=== PATIENT | female | born 1990 | race Caucasian/White ===

== ENCOUNTER 2017-11-22 04:17 | Emergency (ER) | payer OTHER ==
[~2017-11-22] VITALS: Ht 157.5 cm; Wt 79.4 kg
[2017-11-22 04:50] LABS: BASOPHILS ABSOLUTE AUTO 0.05 K/mm3 (0.00-0.23); BASOPHILS PERCENT AUTO 0 % (0-2); EOSINOPHILS ABSOLUTE AUTO 0.29 K/mm3 (0.00-0.68); EOSINOPHILS PERCENT AUTO 2 % (0-6); Hematocrit 41.2 % (33.0-51.0); Hemoglobin 13.7 g/dL (11.5-16.0); IMMATURE GRAN ABSOLUTE AUTO 0.06 K/mm3 (0.00-0.10); IMMATURE GRAN PERCENT AUTO 1 % (0-1); LYMPHOCYTES ABSOLUTE AUTO 2.04 K/mm3 (0.84-5.20); LYMPHOCYTES PERCENT AUTO 16 % (21-46); MONOCYTES ABSOLUTE AUTO 1.17 K/mm3 (0.16-1.47); MONOCYTES PERCENT AUTO 9 % (4-13); Mean Corpuscular HGB 30.6 pg (26.0-34.0); Mean Corpuscular HGB Conc 33.3 g/dL (31.5-36.5); Mean Corpuscular Volume 92 fL (80-100); Mean Platelet Volume 10.1 fL (9.1-12.4); NEUTROPHILS ABSOLUTE AUTO 8.96 K/mm3 (1.96-9.15); NEUTROPHILS PERCENT AUTO 71 % (41-73); Platelet Count 282 K/mm3 (150-400); RDW Coefficient Variation 11.9 % (11.7-14.2); RDW Standard Deviation 40.6 fL (35.1-46.3); Red Blood Cell Count 4.48 M/mm3 (3.80-5.20); White Blood Cell Count 12.57 K/mm3 (4.00-11.30)
[2017-11-22 05:09] LABS: Alanine Aminotransfer (ALT/SGP 40 U/L (12-78); Albumin, Blood 3.6 g/dL (3.4-5.0); Alk Phos 92 U/L (50-136); Anion Gap 5 mmol/L (6-16); Aspartate Aminotrans (AST/SGOT 25 U/L (12-37); Bilirubin, Total 0.2 mg/dL (0.1-1.0); Blood Urea Nitrogen 12 mg/dL (8-24); Bun/Creatinine Ratio 17.5 (12.0-20.0); CO2, Blood 28 mmol/L (21-32); Calcium, Blood 8.5 mg/dL (8.5-10.1); Chloride, Blood 104 mmol/L (98-108); Creatinine, Blood 0.68 mg/dL (0.40-1.00); Globulin, Blood 3.7 g/dL (2.2-4.0); Glomerular Filtration Rate >60 (60-); Glucose, Blood 136 mg/dL (70-99); Potassium, Blood 4.1 mmol/L (3.5-5.5); Sodium, Blood 137 mmol/L (136-145); Total Protein, Blood 7.3 g/dL (6.4-8.2); Troponin I <0.015 ng/mL (0.000-0.040)
== END 2017-11-22 05:50 | disposition home or self-care (01) ==
LOC: ER 04:17
PROVIDERS: Emergency Medicine
DX: R07.9 Chest pain, unspecified (principal); G89.29 Other chronic pain; F17.210 Nicotine dependence, cigarettes, uncomplicated
CPT/HCPCS: 36415; 80053; 84484; 85025; 93005; 93010; 96374; 99284; J1885

== ENCOUNTER 2018-12-24 01:55 | Emergency (ER) | payer OTHER ==
[~2018-12-24] VITALS: Ht 157.5 cm; Wt 81.7 kg
[~2018-12-24 01:55] MED LIST: Bactrim Ds Tab1 EACH PO; IBUP400 PO; Keflex500 MG PO
== END 2018-12-24 06:53 | disposition home or self-care (01) ==
LOC: ER 01:55
DX: J02.9 Acute pharyngitis, unspecified (principal); F17.210 Nicotine dependence, cigarettes, uncomplicated
CPT/HCPCS: 87081; 87147; 87430; 96372; 99283-25; J0561; J1100

== ENCOUNTER 2019-07-09 14:11 | Emergency (ER) | payer OTHER ==
[~2019-07-09] VITALS: Ht 157.5 cm; Wt 83.9 kg
== END 2019-07-09 16:55 | disposition home or self-care (01) ==
LOC: ER 14:11
DX: S61.022A Laceration with foreign body of left thumb without damage to nail, initial encounter (principal); Z23 Encounter for immunization; Z91.040 Latex allergy status; F17.200 Nicotine dependence, unspecified, uncomplicated; W45.8XXA Other foreign body or object entering through skin, initial encounter
CPT/HCPCS: 12001; 73140; 90471; 90714; 99283-25

== ENCOUNTER 2019-12-24 21:58 | Emergency (ER) | payer OTHER ==
[~2019-12-24] VITALS: Ht 157.5 cm; Wt 84.4 kg
[2019-12-24] MEDS ORDERED: BENZ100A PO (23:32)
== END 2019-12-24 23:40 | disposition home or self-care (01) ==
LOC: ER 21:58
DX: J06.9 Acute upper respiratory infection, unspecified (principal); F17.210 Nicotine dependence, cigarettes, uncomplicated; Z20.828 Contact with and (suspected) exposure to other viral communicable diseases
CPT/HCPCS: 71046; 99283-25; U0003

== ENCOUNTER 2019-12-29 23:29 | Emergency (ER) | payer OTHER ==
[~2019-12-29] VITALS: Ht 157.5 cm; Wt 84.4 kg
[~2019-12-29 23:29] MED LIST changes: +BENZ100A PO
[2019-12-30] MEDS ORDERED: Guaifenesin-Co118 ML PO (01:13)
[2019-12-30] MEDS ORDERED: ALBU90OI INH (01:13)
[2019-12-30] MEDS ORDERED: Prednisone20 MG PO (01:13)
[2019-12-30] MEDS ORDERED: Zithromax250 MG PO (01:13)
== END 2019-12-30 01:23 | disposition home or self-care (01) ==
LOC: ER 23:29
DX: J18.9 Pneumonia, unspecified organism (principal); F17.210 Nicotine dependence, cigarettes, uncomplicated; Z91.040 Latex allergy status
CPT/HCPCS: 94640; 99283-25; J7512

== ENCOUNTER 2020-01-05 22:43 | Emergency (ER) | payer OTHER ==
[~2020-01-05] VITALS: Ht 157.5 cm; Wt 84.4 kg
[~2020-01-05 22:43] MED LIST changes: +ALBU90OI INH; +Guaifenesin-Co118 ML PO; +Prednisone20 MG PO; +Zithromax250 MG PO
[2020-01-06] MEDS ORDERED: ALBU2.5V5 INH (01:20)
[2020-01-06] MEDS ORDERED: GUAIFEN-CODEIN118 ML PO (01:20)
== END 2020-01-06 01:17 | disposition home or self-care (01) ==
LOC: ER 22:43
DX: J20.9 Acute bronchitis, unspecified (principal); Z91.040 Latex allergy status; Z79.2 Long term (current) use of antibiotics; Z79.52 Long term (current) use of systemic steroids; F17.210 Nicotine dependence, cigarettes, uncomplicated
CPT/HCPCS: 71046; 99283-25

== ENCOUNTER → 2020-04-02 | Outpatient (CLI) | payer OTHER ==
[~2020-04-02] MED LIST changes: +ALBU2.5V5 INH; +GUAIFEN-CODEIN118 ML PO
[2020-04-04 03:08] LABS: CHLAMYDIA TRACHOMATIS, NAA Negative (Negative); NEISSERIA GONORRHOEAE, NAA Negative (Negative)
== END | disposition home or self-care (01) ==
LOC: LAB 11:06 → LAB SHORT 11:06
PROVIDERS: Advanced Practice Midwife
DX: Z30.09 Encounter for other general counseling and advice on contraception (principal)
CPT/HCPCS: 87491; 87591

== ENCOUNTER 2020-08-25 16:09 | Emergency (ER) | payer OTHER ==
[~2020-08-25] VITALS: Ht 160 cm; Wt 84.4 kg
[2020-08-25 16:42] LABS: BASOPHILS ABSOLUTE AUTO 0.06 K/mm3 (0.00-0.23); BASOPHILS PERCENT AUTO 1 % (0-2); EOSINOPHILS ABSOLUTE AUTO 0.18 K/mm3 (0.00-0.68); EOSINOPHILS PERCENT AUTO 2 % (0-6); Hematocrit 42.8 % (33.0-51.0); Hemoglobin 13.4 g/dL (11.5-16.0); IMMATURE GRAN ABSOLUTE AUTO 0.06 K/mm3 (0.00-0.10); IMMATURE GRAN PERCENT AUTO 1 % (0-1); LYMPHOCYTES ABSOLUTE AUTO 1.65 K/mm3 (0.84-5.20); LYMPHOCYTES PERCENT AUTO 18 % (21-46); MONOCYTES ABSOLUTE AUTO 1.13 K/mm3 (0.16-1.47); MONOCYTES PERCENT AUTO 12 % (4-13); Mean Corpuscular HGB 29.3 pg (26.0-34.0); Mean Corpuscular HGB Conc 31.3 g/dL (31.5-36.5); Mean Corpuscular Volume 93 fL (80-100); Mean Platelet Volume 10.2 fL (9.1-12.4); NEUTROPHILS ABSOLUTE AUTO 6.35 K/mm3 (1.96-9.15); NEUTROPHILS PERCENT AUTO 67 % (41-73); Platelet Count 290 K/mm3 (150-400); RDW Coefficient Variation 12.1 % (11.7-14.2); Red Blood Cell Count 4.58 M/mm3 (3.80-5.20); White Blood Cell Count 9.43 K/mm3 (4.00-11.30)
[2020-08-25 17:01] LABS: Alanine Aminotransfer (ALT/SGP 34 U/L (12-78); Albumin, Blood 3.8 g/dL (3.4-5.0); Alk Phos 97 U/L (50-136); Anion Gap 2 mmol/L (6-16); Aspartate Aminotrans (AST/SGOT 22 U/L (12-37); Bilirubin, Total 0.3 mg/dL (0.1-1.0); Blood Urea Nitrogen 11 mg/dL (8-24); Bun/Creatinine Ratio 16.9 (12.0-20.0); CO2, Blood 31 mmol/L (21-32); Chloride, Blood 106 mmol/L (98-108); Creatinine, Blood 0.65 mg/dL (0.40-1.00); Globulin, Blood 3.8 g/dL (2.2-4.0); Glomerular Filtration Rate >60 (60-); Glucose, Blood 84 mg/dL (70-99); Potassium, Blood 3.7 mmol/L (3.5-5.5); Sodium, Blood 139 mmol/L (136-145); Total Protein, Blood 7.6 g/dL (6.4-8.2)
[2020-08-25] MEDS ORDERED: Keflex500 MG PO (17:41)
[2020-08-25] MEDS ORDERED: Bactrim Ds Tab1 EACH PO (17:41)
== END 2020-08-25 18:00 | disposition home or self-care (01) ==
LOC: ER 16:09
PROVIDERS: Physician Assistant
DX: L03.116 Cellulitis of left lower limb (principal); F17.210 Nicotine dependence, cigarettes, uncomplicated; Z91.040 Latex allergy status
CPT/HCPCS: 36415; 80053; 85025; 96374; 99283-25; A9270; J1885

== ENCOUNTER 2021-02-24 23:05 | Emergency (ER) | payer OTHER ==
[~2021-02-24] VITALS: Ht 157.5 cm; Wt 86.6 kg
[2021-02-25] MEDS ORDERED: CEPH500 PO (00:44)
== END 2021-02-25 01:00 | disposition home or self-care (01) ==
LOC: ER 23:05
DX: L03.115 Cellulitis of right lower limb (principal); F17.210 Nicotine dependence, cigarettes, uncomplicated; Z91.040 Latex allergy status
CPT/HCPCS: 99282; A9270; J1885

== ENCOUNTER 2021-03-02 03:06 | Emergency (ER) | payer OTHER ==
[~2021-03-02] VITALS: Ht 160 cm; Wt 87.1 kg
[~2021-03-02 03:06] MED LIST changes: +CEPH500 PO
[2021-03-02 05:15] LABS: BASOPHILS ABSOLUTE AUTO 0.04 K/mm3 (0.00-0.23); BASOPHILS PERCENT AUTO 1 % (0-2); EOSINOPHILS ABSOLUTE AUTO 0.11 K/mm3 (0.00-0.68); EOSINOPHILS PERCENT AUTO 1 % (0-6); Hematocrit 36.9 % (33.0-51.0); Hemoglobin 12.4 g/dL (11.5-16.0); IMMATURE GRAN ABSOLUTE AUTO 0.09 K/mm3 (0.00-0.10); IMMATURE GRAN PERCENT AUTO 1 % (0-1); LYMPHOCYTES ABSOLUTE AUTO 1.54 K/mm3 (0.84-5.20); LYMPHOCYTES PERCENT AUTO 20 % (21-46); MONOCYTES ABSOLUTE AUTO 1.19 K/mm3 (0.16-1.47); MONOCYTES PERCENT AUTO 15 % (4-13); Mean Corpuscular HGB 30.8 pg (26.0-34.0); Mean Corpuscular HGB Conc 33.6 g/dL (31.5-36.5); Mean Corpuscular Volume 92 fL (80-100); Mean Platelet Volume 9.6 fL (9.1-12.4); NEUTROPHILS ABSOLUTE AUTO 4.81 K/mm3 (1.96-9.15); NEUTROPHILS PERCENT AUTO 62 % (41-73); Platelet Count 274 K/mm3 (150-400); RDW Coefficient Variation 12.2 % (11.7-14.2); RDW Standard Deviation 41.4 fL (35.1-46.3); Red Blood Cell Count 4.03 M/mm3 (3.80-5.20); White Blood Cell Count 7.78 K/mm3 (4.00-11.30)
[2021-03-02 05:36] LABS: Alanine Aminotransfer (ALT/SGP 26 U/L (12-78); Albumin/Globulin Ratio 0.8 (0.8-1.8); Alk Phos 104 U/L (50-136); Anion Gap 5 mmol/L (6-16); Aspartate Aminotrans (AST/SGOT 10 U/L (12-37); Bilirubin, Total 0.2 mg/dL (0.1-1.0); Blood Urea Nitrogen 8 mg/dL (8-24); Bun/Creatinine Ratio 10.8 (12.0-20.0); CO2, Blood 27 mmol/L (21-32); Calcium, Blood 8.4 mg/dL (8.5-10.1); Chloride, Blood 106 mmol/L (98-108); Creatinine, Blood 0.74 mg/dL (0.40-1.00); Glomerular Filtration Rate >60 (60-); Glucose, Blood 115 mg/dL (70-99); Potassium, Blood 3.6 mmol/L (3.5-5.5); Sodium, Blood 138 mmol/L (136-145); Troponin I <0.015 ng/mL (0.000-0.040)
[2021-03-02] MEDS ORDERED: Cleocin HCl300 MG PO (06:09)
== END 2021-03-02 06:24 | disposition home or self-care (01) ==
LOC: ER 03:06
PROVIDERS: Emergency Medicine
DX: L03.116 Cellulitis of left lower limb (principal); L03.115 Cellulitis of right lower limb
CPT/HCPCS: 36415; 80053; 83880; 84484; 85025; 86140; 99283; A9270

== ENCOUNTER 2021-04-28 05:43 | Emergency (ER) | payer OTHER ==
[~2021-04-28] VITALS: Ht 160 cm; Wt 84.4 kg
[~2021-04-28 05:43] MED LIST changes: +Cleocin HCl300 MG PO
[2021-04-28] MEDS ORDERED: PRED20 PO (06:26)
[2021-04-28] MEDS ORDERED: KETO10 PO (06:26)
== END 2021-04-28 07:05 | disposition home or self-care (01) ==
LOC: ER 05:43
DX: M79.641 Pain in right hand (principal); M79.642 Pain in left hand; G89.29 Other chronic pain; F17.210 Nicotine dependence, cigarettes, uncomplicated; Z91.040 Latex allergy status
CPT/HCPCS: 96372; 99283-25; J1885

== ENCOUNTER 2021-07-17 18:22 | Emergency (ER) | payer OTHER ==
[~2021-07-17] VITALS: Ht 160 cm; Wt 88.5 kg
[~2021-07-17 18:22] MED LIST changes: +KETO10 PO; +PRED20 PO
[2021-07-17 18:59] LABS: BASOPHILS ABSOLUTE AUTO 0.06 K/mm3 (0.00-0.23); BASOPHILS PERCENT AUTO 1 % (0-2); EOSINOPHILS ABSOLUTE AUTO 0.13 K/mm3 (0.00-0.68); EOSINOPHILS PERCENT AUTO 1 % (0-6); Hematocrit 41.9 % (33.0-51.0); IMMATURE GRAN ABSOLUTE AUTO 0.19 K/mm3 (0.00-0.10); IMMATURE GRAN PERCENT AUTO 2 % (0-1); LYMPHOCYTES ABSOLUTE AUTO 1.76 K/mm3 (0.84-5.20); LYMPHOCYTES PERCENT AUTO 17 % (21-46); MONOCYTES ABSOLUTE AUTO 0.83 K/mm3 (0.16-1.47); MONOCYTES PERCENT AUTO 8 % (4-13); Mean Corpuscular HGB 30.6 pg (26.0-34.0); Mean Corpuscular HGB Conc 33.4 g/dL (31.5-36.5); Mean Corpuscular Volume 92 fL (80-100); Mean Platelet Volume 10.3 fL (9.1-12.4); NEUTROPHILS ABSOLUTE AUTO 7.51 K/mm3 (1.96-9.15); NEUTROPHILS PERCENT AUTO 72 % (41-73); Platelet Count 395 K/mm3 (150-400); RDW Coefficient Variation 12.7 % (11.7-14.2); RDW Standard Deviation 42.5 fL (35.1-46.3); Red Blood Cell Count 4.57 M/mm3 (3.80-5.20); White Blood Cell Count 10.48 K/mm3 (4.00-11.30)
[2021-07-17 19:22] LABS: Alanine Aminotransfer (ALT/SGP 65 U/L (12-78); Albumin, Blood 3.4 g/dL (3.4-5.0); Albumin/Globulin Ratio 0.8 (0.8-1.8); Alk Phos 91 U/L (50-136); Anion Gap 5 mmol/L (6-16); Aspartate Aminotrans (AST/SGOT 35 U/L (12-37); Bilirubin, Total 0.3 mg/dL (0.1-1.0); Blood Urea Nitrogen 9 mg/dL (8-24); Bun/Creatinine Ratio 9.1 (12.0-20.0); CO2, Blood 29 mmol/L (21-32); Calcium, Blood 9.2 mg/dL (8.5-10.1); Chloride, Blood 104 mmol/L (98-108); Creatinine, Blood 0.99 mg/dL (0.40-1.00); Globulin, Blood 4.3 g/dL (2.2-4.0); Glomerular Filtration Rate >60 (60-); Glucose, Blood 126 mg/dL (70-99); Potassium, Blood 3.6 mmol/L (3.5-5.5); Sodium, Blood 138 mmol/L (136-145); Total Protein, Blood 7.7 g/dL (6.4-8.2)
[2021-07-17] MEDS ORDERED: Clindamycin HC300 MG PO (22:52)
== END 2021-07-18 00:34 | disposition home or self-care (01) ==
LOC: ER 18:22
PROVIDERS: Physician Assistant
DX: L03.115 Cellulitis of right lower limb (principal); Z91.040 Latex allergy status
CPT/HCPCS: 36415; 80053; 85025; 96365; 96366; 99283-25; J3370; J7050

== ENCOUNTER 2021-10-15 20:34 | Emergency (ER) | payer OTHER ==
[~2021-10-15] VITALS: Ht 160 cm; Wt 86.2 kg
[~2021-10-15 20:34] MED LIST changes: +Clindamycin HC300 MG PO
[2021-10-15 21:30] LABS: BASOPHILS ABSOLUTE AUTO 0.07 K/mm3 (0.00-0.23); BASOPHILS PERCENT AUTO 1 % (0-2); EOSINOPHILS ABSOLUTE AUTO 0.31 K/mm3 (0.00-0.68); EOSINOPHILS PERCENT AUTO 3 % (0-6); Hematocrit 40.2 % (33.0-51.0); Hemoglobin 13.3 g/dL (11.5-16.0); IMMATURE GRAN ABSOLUTE AUTO 0.09 K/mm3 (0.00-0.10); IMMATURE GRAN PERCENT AUTO 1 % (0-1); LYMPHOCYTES ABSOLUTE AUTO 1.84 K/mm3 (0.84-5.20); LYMPHOCYTES PERCENT AUTO 16 % (21-46); MONOCYTES ABSOLUTE AUTO 0.88 K/mm3 (0.16-1.47); MONOCYTES PERCENT AUTO 8 % (4-13); Mean Corpuscular HGB 30.2 pg (26.0-34.0); Mean Corpuscular HGB Conc 33.1 g/dL (31.5-36.5); Mean Corpuscular Volume 91 fL (80-100); Mean Platelet Volume 9.6 fL (9.1-12.4); NEUTROPHILS PERCENT AUTO 73 % (41-73); Platelet Count 363 K/mm3 (150-400); RDW Coefficient Variation 12.5 % (11.7-14.2); White Blood Cell Count 11.69 K/mm3 (4.00-11.30)
[2021-10-15 21:50] LABS: Alanine Aminotransfer (ALT/SGP 46 U/L (12-78); Albumin, Blood 3.5 g/dL (3.4-5.0); Albumin/Globulin Ratio 0.8 (0.8-1.8); Alk Phos 90 U/L (50-136); Anion Gap 5 mmol/L (6-16); Aspartate Aminotrans (AST/SGOT 27 U/L (12-37); Bilirubin, Total 0.2 mg/dL (0.1-1.0); Blood Urea Nitrogen 11 mg/dL (8-24); Bun/Creatinine Ratio 14.5 (12.0-20.0); CO2, Blood 31 mmol/L (21-32); Calcium, Blood 9.3 mg/dL (8.5-10.1); Chloride, Blood 104 mmol/L (98-108); Creatinine, Blood 0.76 mg/dL (0.40-1.00); Globulin, Blood 4.3 g/dL (2.2-4.0); Glomerular Filtration Rate >60 (60-); Glucose, Blood 142 mg/dL (70-99); Potassium, Blood 3.8 mmol/L (3.5-5.5); Sodium, Blood 140 mmol/L (136-145); Total Protein, Blood 7.8 g/dL (6.4-8.2)
[2021-10-15] MEDS ORDERED: LASIX20 M2 PO (22:44)
[2021-10-15] MEDS ORDERED: POTCHL20ER PO (22:44)
[2021-10-15] MEDS ORDERED: SULTRISS PO (22:44)
[2021-10-15] MEDS ORDERED: DOXY100 PO (22:44)
== END 2021-10-15 23:08 | disposition home or self-care (01) ==
LOC: ER 20:34
PROVIDERS: Physician Assistant
DX: L03.115 Cellulitis of right lower limb (principal); L03.116 Cellulitis of left lower limb; F17.210 Nicotine dependence, cigarettes, uncomplicated; Z91.040 Latex allergy status; Z79.899 Other long term (current) drug therapy
CPT/HCPCS: 36415; 80053; 85025; 99283; A9270

== ENCOUNTER 2022-04-16 20:51 | Emergency (ER) | payer OTHER ==
[~2022-04-16] VITALS: Ht 160 cm; Wt 92.1 kg
[~2022-04-16 20:51] MED LIST changes: +DOXY100 PO; +LASIX20 M2 PO; +POTCHL20ER PO; +SULTRISS PO
[2022-04-17] MEDS ORDERED: CEPH500 PO (01:44)
== END 2022-04-17 02:40 | disposition home or self-care (01) ==
LOC: ER 20:51
DX: L03.116 Cellulitis of left lower limb (principal); L03.115 Cellulitis of right lower limb; Z79.52 Long term (current) use of systemic steroids; Z79.899 Other long term (current) drug therapy; Z91.040 Latex allergy status
CPT/HCPCS: 36415; 99282; A9270

== ENCOUNTER 2023-08-21 02:57 | Emergency (ER) | payer OTHER ==
[~2023-08-21] VITALS: Ht 157.5 cm; Wt 93.0 kg
[2023-08-21 05:26] LABS: BASOPHILS ABSOLUTE AUTO 0.07 K/mm3 (0.00-0.23); BASOPHILS PERCENT AUTO 1 % (0-2); EOSINOPHILS ABSOLUTE AUTO 0.19 K/mm3 (0.00-0.68); EOSINOPHILS PERCENT AUTO 2 % (0-6); Hematocrit 38.4 % (33.0-51.0); Hemoglobin 12.7 g/dL (11.5-16.0); IMMATURE GRAN ABSOLUTE AUTO 0.11 K/mm3 (0.00-0.10); IMMATURE GRAN PERCENT AUTO 1 % (0-1); LYMPHOCYTES ABSOLUTE AUTO 1.46 K/mm3 (0.84-5.20); LYMPHOCYTES PERCENT AUTO 12 % (21-46); MONOCYTES ABSOLUTE AUTO 1.71 K/mm3 (0.16-1.47); MONOCYTES PERCENT AUTO 15 % (4-13); Mean Corpuscular HGB 30.2 pg (26.0-34.0); Mean Corpuscular HGB Conc 33.1 g/dL (31.5-36.5); Mean Corpuscular Volume 91 fL (80-100); Mean Platelet Volume 10.3 fL (9.1-12.4); NEUTROPHILS PERCENT AUTO 70 % (41-73); Platelet Count 318 K/mm3 (150-400); RDW Coefficient Variation 12.7 % (11.7-14.2); RDW Standard Deviation 42.3 fL (35.1-46.3); Red Blood Cell Count 4.21 M/mm3 (3.80-5.20); White Blood Cell Count 11.74 K/mm3 (4.00-11.30)
[2023-08-21 05:51] LABS: Albumin, Blood 3.3 g/dL (3.4-5.0); Albumin/Globulin Ratio 0.7 (0.8-1.8); Bilirubin, Total 0.3 mg/dL (0.1-1.0); Bun/Creatinine Ratio 11.7 (12.0-20.0); Calcium, Blood 9.2 mg/dL (8.5-10.1); Creatinine, Blood 0.68 mg/dL (0.40-1.00); Globulin, Blood 4.5 g/dL (2.2-4.0); Potassium, Blood 3.1 mmol/L (3.5-5.5); Total Protein, Blood 7.8 g/dL (6.4-8.2)
[2023-08-21] MEDS ORDERED: SULTRIDS PO (08:12)
[2023-08-21 08:48] VITALS: BP 143/69
== END 2023-08-21 08:53 | disposition home or self-care (01) ==
LOC: ER 02:57
PROVIDERS: Student in an Organized Health Care Education/Training Program
DX: L03.116 Cellulitis of left lower limb (principal); L03.115 Cellulitis of right lower limb; E87.6 Hypokalemia; F17.210 Nicotine dependence, cigarettes, uncomplicated; Z91.040 Latex allergy status; Z79.899 Other long term (current) drug therapy
CPT/HCPCS: 80053; 83735; 83880; 85025; 93970; 96361; 96374; 99284-25; A9270; J1885; J7030

== ENCOUNTER 2024-02-03 03:13 | Emergency (ER) | payer OTHER ==
[~2024-02-03] VITALS: Ht 157.5 cm; Wt 93.0 kg
[~2024-02-03 03:13] MED LIST changes: +SULTRIDS PO
[2024-02-03 04:40] VITALS: BP 140/96
[2024-02-03] MEDS ORDERED: ALBU90OI INH (06:11)
[2024-02-03] MEDS ORDERED: AZIT250 PO (06:11)
== END 2024-02-03 06:23 ==
LOC: ER 03:13
DX: J18.9 Pneumonia, unspecified organism (principal); F17.200 Nicotine dependence, unspecified, uncomplicated; Z91.040 Latex allergy status
CPT/HCPCS: 71046; 99283-25

== ENCOUNTER 2024-02-12 19:13 | Emergency (ER) | payer OTHER ==
[~2024-02-12] VITALS: Ht 157.5 cm; Wt 93.0 kg
[~2024-02-12 19:13] MED LIST changes: +AZIT250 PO
[2024-02-12 19:40] VITALS: BP 139/94
== END 2024-02-12 22:25 | disposition home or self-care (01) ==
LOC: ER 19:13
DX: S61.001D Unspecified open wound of right thumb without damage to nail, subsequent encounter (principal); F17.210 Nicotine dependence, cigarettes, uncomplicated; W26.9XXD Contact with unspecified sharp object(s), subsequent encounter; Z79.899 Other long term (current) drug therapy; Z91.040 Latex allergy status
CPT/HCPCS: 99282

== ENCOUNTER 2024-04-28 04:39 | Emergency (ER) | payer OTHER ==
[~2024-04-28] VITALS: Ht 157.5 cm; Wt 93.0 kg
[2024-04-28] MEDS ORDERED: GUAIFENESIN-DM 15 M2 (04:54)
[2024-04-28] MEDS ORDERED: AMOCLA875 PO (04:55)
[2024-04-28] MEDS ORDERED: BENZ100A PO (04:55)
[2024-04-28] MEDS ORDERED: Albuterol 2.5 MG/3 ML VIAL INH ONE (05:05)
[2024-04-28 06:15] LABS: BASOPHILS ABSOLUTE AUTO 0.12 K/mm3 (0.00-0.23); BASOPHILS PERCENT AUTO 1 % (0-2); EOSINOPHILS ABSOLUTE AUTO 0.66 K/mm3 (0.00-0.68); EOSINOPHILS PERCENT AUTO 7 % (0-6); Hematocrit 39.8 % (33.0-51.0); Hemoglobin 13.1 g/dL (11.5-16.0); IMMATURE GRAN ABSOLUTE AUTO 0.35 K/mm3 (0.00-0.10); IMMATURE GRAN PERCENT AUTO 4 % (0-1); LYMPHOCYTES ABSOLUTE AUTO 2.86 K/mm3 (0.84-5.20); LYMPHOCYTES PERCENT AUTO 29 % (21-46); MONOCYTES PERCENT AUTO 13 % (4-13); Mean Corpuscular HGB 29.6 pg (26.0-34.0); Mean Corpuscular HGB Conc 32.9 g/dL (31.5-36.5); Mean Corpuscular Volume 90 fL (80-100); Mean Platelet Volume 9.3 fL (9.1-12.4); NEUTROPHILS ABSOLUTE AUTO 4.68 K/mm3 (1.96-9.15); NEUTROPHILS PERCENT AUTO 47 % (41-73); Platelet Count 369 K/mm3 (150-400); RDW Coefficient Variation 12.7 % (11.7-14.2); RDW Standard Deviation 41.7 fL (35.1-46.3); Red Blood Cell Count 4.43 M/mm3 (3.80-5.20); White Blood Cell Count 9.97 K/mm3 (4.00-11.30)
[2024-04-28 06:54] LABS: Albumin, Blood 3.3 g/dL (3.4-5.0); Albumin/Globulin Ratio 0.8 (0.8-1.8); Bilirubin, Total 0.2 mg/dL (0.1-1.0); Bun/Creatinine Ratio 10.7 (12.0-20.0); Calcium, Blood 8.7 mg/dL (8.5-10.1); Creatinine, Blood 1.12 mg/dL (0.40-1.00); Globulin, Blood 3.9 g/dL (2.2-4.0); Potassium, Blood 3.2 mmol/L (3.5-5.5); Total Protein, Blood 7.2 g/dL (6.4-8.2)
[2024-04-28] MEDS ORDERED: LEVO750 PO (06:58)
[2024-04-28] MEDS ORDERED: NS 1,000 ML IV SCH (07:00)
[2024-04-28] MEDS ORDERED: LevoFLOXacin 750 MG Tab PO ONE (07:00)
[2024-04-28 08:15] VITALS: BP 149/71
[2024-05-02] MEDS ORDERED: VISBIOME 112.51 EACH PO ×2 (10:20)
[2024-05-02] MEDS ORDERED: LEVOFLOXACIN750 MG PO ×2 (10:21)
[2024-05-02] MEDS ORDERED: ALBU90OI INH ×2 (10:21)
[2024-05-02] MEDS ORDERED: Prednisone10 MG PO ×2 (10:23)
[2024-05-02] MEDS ORDERED: CODEINE-GUAIFE120 M1 PO ×2 (10:26)
== END 2024-04-28 08:21 | disposition home or self-care (01) ==
LOC: ER 04:39
PROVIDERS: Emergency Medicine
DX: J18.9 Pneumonia, unspecified organism (principal); L03.115 Cellulitis of right lower limb; Z91.040 Latex allergy status; Z79.899 Other long term (current) drug therapy; F17.210 Nicotine dependence, cigarettes, uncomplicated
CPT/HCPCS: 71046; 80053; 84703; 85025; 93005; 93010; 94640; 94664; 96360; 99285-25; A9270

== ENCOUNTER 2024-04-30 22:54 | Inpatient (IN) | payer OTHER ==
[~2024-04-30] VITALS: Ht 157.5 cm; Wt 91.0 kg
[~2024-04-30 22:54] MED LIST changes: +AMOCLA875 PO; +GUAIFENESIN-DM 15 M2; +LEVO750 PO
[2024-05-01 00:04] LABS: BASOPHILS PERCENT AUTO 1 % (0-2); EOSINOPHILS ABSOLUTE AUTO 0.49 K/mm3 (0.00-0.68); EOSINOPHILS PERCENT AUTO 5 % (0-6); Hematocrit 36.7 % (33.0-51.0); Hemoglobin 12.2 g/dL (11.5-16.0); IMMATURE GRAN ABSOLUTE AUTO 0.36 K/mm3 (0.00-0.10); IMMATURE GRAN PERCENT AUTO 4 % (0-1); LYMPHOCYTES PERCENT AUTO 27 % (21-46); MONOCYTES ABSOLUTE AUTO 1.21 K/mm3 (0.16-1.47); MONOCYTES PERCENT AUTO 13 % (4-13); Mean Corpuscular HGB Conc 33.2 g/dL (31.5-36.5); Mean Corpuscular Volume 90 fL (80-100); Mean Platelet Volume 9.6 fL (9.1-12.4); NEUTROPHILS ABSOLUTE AUTO 4.67 K/mm3 (1.96-9.15); NEUTROPHILS PERCENT AUTO 50 % (41-73); Platelet Count 357 K/mm3 (150-400); RDW Standard Deviation 42.2 fL (35.1-46.3); Red Blood Cell Count 4.07 M/mm3 (3.80-5.20); White Blood Cell Count 9.33 K/mm3 (4.00-11.30)
[2024-05-01 00:25] LABS: Albumin/Globulin Ratio 0.8 (0.8-1.8); Bilirubin, Total 0.2 mg/dL (0.1-1.0); Bun/Creatinine Ratio 12.4 (12.0-20.0); C-Reactive Protein, High Sens. 6.75 mg/dL (0.000-3.000); Creatinine, Blood 0.81 mg/dL (0.40-1.00); Globulin, Blood 3.6 g/dL (2.2-4.0); Potassium, Blood 3.6 mmol/L (3.5-5.5); Total Protein, Blood 6.6 g/dL (6.4-8.2)
[2024-05-01] MEDS ORDERED: CefTRIAXone Sodium 1,000 MG in NS 100 ML IV ONE (04:00)
[2024-05-01] MEDS ORDERED: Azithromycin 500 MG in NS 250 ML IV ONE (04:00)
[2024-05-01] MEDS ORDERED: NS 1,000 ML IV ONE (05:05)
[2024-05-01] MEDS ORDERED: Ipratropium/Albuterol SulF 2.5-0.5MG/3 ML Amp INH PRN (05:05)
[2024-05-01] MEDS ORDERED: Ondansetron HCl 2 MG / ML 2ML Vial IV PRN (05:05)
[2024-05-01] MEDS ORDERED: FLU VACC TS2024-25(6MOS UP)/PF 45 MCG/0.5 ML SYRINGE IM ONE (05:10)
[2024-05-01] MEDS ORDERED: Piperacillin/Tazobactam Sod 4.5 GM in NS 100 ML IV SCH (06:00)
[2024-05-01] MEDS ORDERED: MethylPREDNISolone Sod Succ 125 MG Vial IV SCH (07:00)
[2024-05-01 07:49] LABS: Influenza A, PCR NEGATIVE (NEGATIVE); Influenza B, PCR NEGATIVE (NEGATIVE); Resp Syncytial Virus, PCR NEGATIVE (NEGATIVE); SARS-Cov-2 (COVID-19) PCR, MMC NEGATIVE (NEGATIVE)
[2024-05-01 08:28] LABS: Source, Urine Clean Catch
[2024-05-01 08:31] LABS: Appearance, Urine Hazy (Clear); Bilirubin, Urine Neg (Neg); Blood, Urine Neg (Neg); Color, Urine Yellow (P-Yellow); Glucose Qualitative, Urine Neg (Neg); Ketones, Urine Neg (Neg); Leukocyte Esterase, Urine Neg (Neg); Nitrite, Urine Neg (Neg); Protein, Urine Neg (Neg); Urobilinogen, Urine NORM (Normal)
[2024-05-01 08:34] LABS: U Amphetamine Screen DETECTED; U Barbituate Screen Not Detected; U Benzodiazapine Screen Not Detected; U Buprenorphine Screen Not Detected; U Cannabinoids Screen Not Detected; U Cocaine Screen Not Detected; U Methadone Screen Not Detected; U Methamphetamine Screen DETECTED; U Opiates Screen DETECTED; U Oxycodone Screen Not Detected; U Phencyclidine Screen Not Detected
[2024-05-01 08:39] LABS: Bacteria Few /hpf; Red Blood Cells, Urine 0-2 /hpf (0-2); Squamous Epithelial Cells Many /hpf (Few); White Blood Cells, Urine 0-2 /hpf (0-5); Yeast/Fungi Urine Few /hpf
[2024-05-01 08:40] LABS: Amorphous Light (0-Heavy)
[2024-05-01] MEDS ORDERED: Enoxaparin 40 MG/0.4 ML SYR SC SCH (09:00)
[2024-05-01 10:10] VITALS: BP 134/86
[2024-05-01] MEDS ORDERED: NS 1,000 ML IV SCH (10:50)
[2024-05-01] MEDS ORDERED: Albuterol 2.5 MG/3 ML VIAL INH PRN (12:15)
[2024-05-01 16:10] VITALS: BP 147/89
--- NOTE | 2024-05-01 16:52 | NUR ---
PT ADMITTED FROM THE ED THIS MORNING. PT IS A/OX4 AND INDEPENDENT IN THE ROOM. PT IS ON ROOM AIR WITH SATS MAINTAINING > 96% NORMAL SALINE RUNNING AT 75 ML/HR. ON ASSESSMENT CRACKLES NOTED MORE IN THE RIGHT MIDDLE AND RIGHT LOWER LOBES. PT HAS BILATERAL CELLUITIS TO THE LOWER EXTREMITIES WITH 2+ EDEMA, CURRENTLY ELEVATED IN PILLOWS. TELE RUNNING SINUS TACH IN THE 110'S. PT'S BOYFRIEND AND SON AT BEDSIDE.
[2024-05-01 19:20] VITALS: BP 142/87
--- NOTE | 2024-05-01 22:35 | NUR ---
PT SHOWS ELEVATED HR. DR DAVIDSON NOTIFIED, NO NEW ORDERS AT THIS TIME.
[2024-05-02 04:05] VITALS: BP 130/79
--- NOTE | 2024-05-02 05:34 | NUR ---
SHIFT SUMMARY PT A&OX4 AND ANSWERS QUESTIONS APPROPRIATELY. PT FAMILY AT BEDSIDE. PT INDEPENDENT IN ROOM AND IS CONTINENT. PT RECEIVED SCHEDULED MEDICATIONS DURING SHIFT. PT HAD ELEVATED HR IN THE 110S AT BEGINNING OF SHIFT, BUT WAS NSR IN THE 80S BY END OF SHIFT PER TELE MONITOR. CONTINUOUS TELE IN PLACE. REMAINING VSS, NO COMPLAINTS OF CP/PRESSURE OR SOB. PT SPENT MOST OF SHFIT IN BED WITH EYES CLOSED AND RESIRATIONS EVEN. DYSPNEA WITH EXERSION REPORTED BY PT. NO ACUTE EVENTS AT THIS TIME. PT REPOSITIONED INDEPENDENTLY. PT LEFT IN A POSITION OF SAFETYU WITH FALL PRECAUTIONS IN PLACE AND CALL LIGHT IN REACH.
[2024-05-02 05:41] LABS: Hematocrit 39.9 % (33.0-51.0); Hemoglobin 13.4 g/dL (11.5-16.0); Mean Corpuscular HGB 29.8 pg (26.0-34.0); Mean Corpuscular HGB Conc 33.6 g/dL (31.5-36.5); Mean Corpuscular Volume 89 fL (80-100); Mean Platelet Volume 9.8 fL (9.1-12.4); Platelet Count 423 K/mm3 (150-400); RDW Standard Deviation 41.8 fL (35.1-46.3); Red Blood Cell Count 4.49 M/mm3 (3.80-5.20); White Blood Cell Count 23.97 K/mm3 (4.00-11.30)
[2024-05-02 06:00] LABS: BAND PERCENT MAN 8 % (0-8); BASOPHILS PERCENT MAN 0 % (0-2); EOSINOPHILS PERCENT MAN 0 % (0-6); LYMPHOCYTES ABSOLUTE MAN 2.39 K/mm3 (0.84-5.20); LYMPHOCYTES PERCENT MAN 10 % (21-46); MONOCYTES ABSOLUTE MAN 1.19 K/mm3 (0.16-1.47); MONOCYTES PERCENT MAN 5 % (4-13); NEUTROPHILS ABSOLUTE MAN 20.37 K/mm3 (1.96-9.15); SEG NEUTROPHILS PERCENT MAN 77 % (41-73); TOTAL CELLS COUNTED 100
[2024-05-02 07:02] LABS: Albumin/Globulin Ratio 0.8 (0.8-1.8); Bilirubin, Total 0.2 mg/dL (0.1-1.0); Bun/Creatinine Ratio 15.2 (12.0-20.0); Creatinine, Blood 0.72 mg/dL (0.40-1.00); Globulin, Blood 3.9 g/dL (2.2-4.0); Potassium, Blood 3.7 mmol/L (3.5-5.5); Total Protein, Blood 6.9 g/dL (6.4-8.2)
[2024-05-02 07:32] VITALS: BP 129/83
[2024-05-02 07:53] LABS: Adenovirus Not Detected (NOT DETECT); Bordetella pertussis Not Detected (NOT DETECT); Chlamydophila pneumoniae Not Detected (NOT DETECT); Coronavirus 229E Not Detected (NOT DETECT); Coronavirus HKU1 Not Detected (NOT DETECT); Coronavirus NL63 Not Detected (NOT DETECT); Coronavirus OC43 Not Detected (NOT DETECT); Human Metapneumovirus Not Detected (NOT DETECT); Human Rhinovirus/Enterovirus Not Detected (NOT DETECT); Influenza A/2009-H1 Not Detected (NOT DETECT); Influenza A/H1 Not Detected (NOT DETECT); Influenza A/H3 Not Detected (NOT DETECT); Influenza B Not Detected (NOT DETECT); Mycoplasma pneumoniae Not Detected (NOT DETECT); Parainfluenza Virus 1 Not Detected (NOT DETECT); Parainfluenza Virus 2 Not Detected (NOT DETECT); Parainfluenza Virus 3 Not Detected (NOT DETECT); Parainfluenza Virus 4 Not Detected (NOT DETECT); Respiratory Syncytial Virus Not Detected (NOT DETECT); SARS-Cov-2 (COVID-19), BioFire Not Detected (NOT DETECT)
--- NOTE | 2024-05-02 10:16 | NUR ---
PT LEFT PRIOR TO COMPLETING DISCHARGE PAPERWORK IN ORDER TO MAKE IT TO HER APPOINTMENT. AGREEDED TO COME BACK IN ORDER TO RECIEVE HER DISCHARGE PAPERWORK AND INSTRUCTIONS.
[2024-05-02] MEDS ORDERED: VISBIOME 112.51 EACH PO (10:20)
[2024-05-02] MEDS ORDERED: LEVOFLOXACIN750 MG PO (10:21)
[2024-05-02] MEDS ORDERED: ALBU90OI INH (10:21)
[2024-05-02] MEDS ORDERED: Prednisone10 MG PO (10:23)
[2024-05-02] MEDS ORDERED: CODEINE-GUAIFE120 M1 PO (10:26)
== END 2024-05-02 10:34 | disposition home or self-care (01) | DRG 871 ==
LOC: ER 22:54 → ERHOLD 22:55 → ER 05-01 04:53 → ERHOLD 05-01 04:53 → MEDS 05-01 09:44 → ERHOLD 05-01 09:45 → MEDS 05-01 10:04
PROVIDERS: Emergency Medicine; Internal Medicine; ADMIT Internal Medicine
DX: A41.9 Sepsis, unspecified organism (principal); J18.9 Pneumonia, unspecified organism; L03.115 Cellulitis of right lower limb; E66.9 Obesity, unspecified; R91.1 Solitary pulmonary nodule; J45.909 Unspecified asthma, uncomplicated; F15.90 Other stimulant use, unspecified, uncomplicated; Z68.37 Body mass index [BMI] 37.0-37.9, adult; Z71.51 Drug abuse counseling and surveillance of drug abuser; Z91.040 Latex allergy status; Z79.2 Long term (current) use of antibiotics; Z79.899 Other long term (current) drug therapy; F17.210 Nicotine dependence, cigarettes, uncomplicated
CPT/HCPCS: 0202U; 0241U; 36415; 71046; 71260; 80053; 81001; 83605; 83880; 84145; 84484; 84703; 85025; 85651; 86141; 92610; 93005; 93010; 93970; 94640; 94664; 94760; 96360; 96365-59; 96375-59; 99285-25; A9270; J0456; J0696; J1650; J2543; J2919; J7030; J7050; Q9967

== ENCOUNTER 2025-03-02 20:27 | Emergency (ER) | payer OTHER ==
[~2025-03-02] VITALS: Ht 157.5 cm; Wt 90.7 kg
[~2025-03-02 20:27] MED LIST changes: +CODEINE-GUAIFE120 M1 PO; +LEVOFLOXACIN750 MG PO; +Prednisone10 MG PO; +VISBIOME 112.51 EACH PO
[2025-03-02 21:29] LABS: BASOPHILS ABSOLUTE AUTO 0.05 K/mm3 (0.00-0.23); BASOPHILS PERCENT AUTO 1 % (0-2); EOSINOPHILS ABSOLUTE AUTO 0.13 K/mm3 (0.00-0.68); EOSINOPHILS PERCENT AUTO 1 % (0-6); Hematocrit 36.1 % (33.0-51.0); Hemoglobin 11.9 g/dL (11.5-16.0); IMMATURE GRAN ABSOLUTE AUTO 0.05 K/mm3 (0.00-0.10); IMMATURE GRAN PERCENT AUTO 1 % (0-1); LYMPHOCYTES ABSOLUTE AUTO 1.01 K/mm3 (0.84-5.20); LYMPHOCYTES PERCENT AUTO 10 % (21-46); MONOCYTES ABSOLUTE AUTO 1.29 K/mm3 (0.16-1.47); MONOCYTES PERCENT AUTO 13 % (4-13); Mean Corpuscular HGB Conc 33.0 g/dL (31.5-36.5); Mean Corpuscular Volume 92 fL (80-100); NEUTROPHILS ABSOLUTE AUTO 7.81 K/mm3 (1.96-9.15); NEUTROPHILS PERCENT AUTO 75 % (41-73); NRBC ABSOLUTE 0.00 K/mm3 (0.00-0.02); NRBC Auto 0.0 /100 WBC (0.0-0.2); Platelet Count 245 K/mm3 (150-400); RDW Coefficient Variation 12.7 % (11.7-14.2); RDW Standard Deviation 42.5 fL (35.1-46.3)
[2025-03-02 21:51] LABS: Alanine Aminotransfer (ALT/SGP 29.0 U/L (12-78); Albumin, Blood 3.2 g/dL (3.4-5.0); Albumin/Globulin Ratio 0.8 (0.8-1.8); Anion Gap 8.0 mmol/L (3-11); Aspartate Aminotrans (AST/SGOT 19.0 U/L (12-37); Bilirubin, Total 0.4 mg/dL (0.1-1.0); Blood Urea Nitrogen 9.0 mg/dL (8-24); CO2, Blood 27.0 mmol/L (21-32); Calcium, Blood 8.5 mg/dL (8.5-10.1); Chloride, Blood 104.0 mmol/L (98-108); Creatinine, Blood 0.76 mg/dL (0.40-1.00); Globulin, Blood 3.9 g/dL (2.2-4.0); Glucose, Blood 96.0 mg/dL (70-99); Potassium, Blood 3.3 mmol/L (3.5-5.5); Sodium, Blood 136.0 mmol/L (136-145); Total Protein, Blood 7.1 g/dL (6.4-8.2)
[2025-03-02] MEDS ORDERED: Trimethoprim/Sulfamethoxazole DS Tab PO ONE (22:25)
[2025-03-02] MEDS ORDERED: BACTRIM DS TAB1 EAC1 PO (22:26)
[2025-03-02] MEDS ORDERED: GABA300 PO (22:26)
[2025-03-02 23:14] VITALS: BP 146/88
== END 2025-03-02 23:15 | disposition home or self-care (01) ==
LOC: ER 20:27
PROVIDERS: Student in an Organized Health Care Education/Training Program
DX: I87.2 Venous insufficiency (chronic) (peripheral) (principal); L03.116 Cellulitis of left lower limb; G62.9 Polyneuropathy, unspecified; F17.210 Nicotine dependence, cigarettes, uncomplicated; Z79.899 Other long term (current) drug therapy; Z91.040 Latex allergy status
CPT/HCPCS: 80053; 85025; 99283; A9270

== ENCOUNTER → 2025-05-21 | Outpatient (CLI) | payer OTHER ==
[~2025-05-21] MED LIST changes: +BACTRIM DS TAB1 EAC1 PO; +GABA300 PO
[2025-05-22 16:12] LABS: Bacterial Vaginosis PCR Negative (NEGATIVE); Candida Group, PCR NOT DETECTED (NOT DETECT); Candida glabrata-krusei, PCR NOT DETECTED (NOT DETECT)
[2025-05-22 16:41] LABS: Chlamydia Trachomatis Vaginal NOT DETECTED (NOT DETECT); Neisseria Gonorrhoea Vaginal NOT DETECTED (NOT DETECT)
== END ==
LOC: LAB 17:00 → LAB SHORT 17:00
PROVIDERS: Nurse Practitioner Family
DX: B35.1 Tinea unguium (principal); B35.3 Tinea pedis; N89.8 Other specified noninflammatory disorders of vagina; Z11.3 Encounter for screening for infections with a predominantly sexual mode of transmission
CPT/HCPCS: 81515; 87491; 87591; 87624; G0145

== ENCOUNTER 2025-06-30 01:39 | Emergency (ER) | payer OTHER ==
[~2025-06-30] VITALS: Ht 157.5 cm; Wt 88.5 kg
[2025-06-30] MEDS ORDERED: Ketorolac Tromethamine 15mg Vial IM ONE (02:15)
[2025-06-30 02:23] VITALS: BP 136/89
== END 2025-06-30 02:28 | disposition home or self-care (01) ==
LOC: ER 01:39
DX: J06.9 Acute upper respiratory infection, unspecified (principal); H92.02 Otalgia, left ear; F17.210 Nicotine dependence, cigarettes, uncomplicated; Z91.040 Latex allergy status
CPT/HCPCS: 96372; 99282-25; J1885

== ENCOUNTER 2025-07-29 08:01 | Emergency (ER) | payer OTHER ==
[~2025-07-29] VITALS: Ht 157.5 cm; Wt 88.5 kg
[2025-07-29 08:19] VITALS: BP 148/128
[2025-07-29] MEDS ORDERED: Cleocin HCl150 MG PO (10:18)
== END 2025-07-29 10:49 | disposition home or self-care (01) ==
LOC: ER 08:01
DX: K04.7 Periapical abscess without sinus (principal); K02.9 Dental caries, unspecified; H92.02 Otalgia, left ear; R73.03 Prediabetes; F17.210 Nicotine dependence, cigarettes, uncomplicated; Z59.89 Other problems related to housing and economic circumstances; Z91.040 Latex allergy status
CPT/HCPCS: 99282; A9270